=== PATIENT | male | born 1980 | race Caucasian/White ===

== ENCOUNTER 2022-02-06 19:30 | Emergency (ER) | payer OTHER ==
[~2022-02-06 19:30] MED LIST: DICLOFENAC SODI75 MG PO; RIFADIN300 MG PO; VIBRAMYCIN100 MG PO
[2022-02-06 20:52] LABS: CORONAVIRUS 2019 SARS-COV-2 NEGATIVE (NEGATIVE); INFLUENZA A NAA NEGATIVE (NEGATIVE)
[2022-02-06] MEDS ORDERED: LOPRESSOR25 MG PO (21:29)
[2022-02-06] MEDS ORDERED: PEPCID AC20 MG PO (21:29)
== END 2022-02-06 21:50 | disposition home or self-care (01) ==
LOC: FER 19:30
PROVIDERS: Physician Assistant
DX: K21.9 Gastro-esophageal reflux disease without esophagitis (principal); I10 Essential (primary) hypertension; F17.210 Nicotine dependence, cigarettes, uncomplicated; Z20.822 Contact with and (suspected) exposure to COVID-19; Z28.310 Unvaccinated for COVID-19
CPT/HCPCS: 71046; U0002